=== PATIENT | female | born 1985 | race Two or more races ===

== ENCOUNTER 2020-05-17 17:16 | Emergency (ER) | payer OTHER ==
[~2020-05-17] VITALS: Ht 162.6 cm; Wt 108.9 kg
[2020-05-17] MEDS ORDERED: SOMA250 MG PO (17:30)
[2020-05-17] MEDS ORDERED: VENTOLIN HFA18 GM (17:30)
[2020-05-17] MEDS ORDERED: OXICODONE (17:31)
[2020-05-17] MEDS ORDERED: KETO10TA2 PO (21:25)
[2020-05-17] MEDS ORDERED: ORPHENADRINE C100 MG PO (21:25)
== END 2020-05-17 21:31 | disposition home or self-care (01) ==
LOC: ER 17:16
DX: M25.561 Pain in right knee (principal); M79.662 Pain in left lower leg